=== PATIENT | female | born 1975 | race Caucasian/White ===

== ENCOUNTER 2023-04-18 01:57 | Day surgery (SDC) | payer BC, SELFPAY ==
[2023-04-09 11:03] VITALS: BMI 30.4
--- NOTE | 2023-04-09 11:08 | PC.NURSE ---
Report to the Outpatient Waiting Room, entrance under the green pavilion located off [facility], at time 0930 on date 04/18/23. Planned Procedure Time: 1130. Time changes happen often and if your time is changed the preop area will call you the afternoon before. - You and your visitor will be asked to self-screen and do not enter if you have any COVID symptoms. - A mask is optional within the hospital at this time. Patients may have clear liquids (water, carbonated beverages, clear teas, apple juice) until 3 hours prior to surgery with a maximum of 20 ounces. - No food from midnight until time of surgery Take the following medications with a SIP of water the morning of surgery: SERTRALINE DO NOT STOP ANY OF YOUR OTHER PRESCRIPTION MEDICATIONS PRIOR TO SURGERY ?EXCEPT THE FOLLOWING Medications to discontinue per physician: N/A Date to take last dose: N/A Please no make-up, nail pashto, hairspray, perfume, deodorant, or body powder the day of surgery. No jewelry (including any body piercings) or valuables the day of surgery, leave them at home. Please take a shower or bath the night before, or the morning of, surgery with an antibacterial soap. Wear comfortable, loose fitting clothing. - Jewelry must be removed prior to entering the operating room. Rings and piercings that are not removed may be cut off. - The hospital will not accept responsibility for valuables. - Please leave all valuables, including medications, at home the day of surgery. If you are going home after surgery, a licensed racecar driver must drive you home. - NO public transportation without another adult if you receive anesthesia. - We recommend that an adult stay with you for 24 hours following discharge. - We also recommend that you do not drive, make important decision, drink alcoholic beverages, or take any drugs that were not prescribed by your health care provider for at least 24 hours after your discharge time. Follow any additional instructions given to you from your surgeon. If you or anyone in your household have experienced Covid symptoms in the past week, please notify your surgeon or the nurse liaison at the phone number below for possible testing. Telephone instructions given to PT - HIWOT GARCIA and asked if any additional questions and then verbalized understanding. Patient advised to call surgeon office or pre surgery nurse liaison [phone] if any additional questions.
--- NOTE | ~2023-04-18 | XR_ITS ---
EXAMINATION: XR surgery orthopedic DATE: 04/18/2023 10:23 INDICATION: Orthopedic procedure at the left forefoot TECHNIQUE: Single dorsal plantar fluoroscopic image of the left forefoot was obtained during procedur e performed by Dr. Krueger. Radiologist was not present for the imaging or procedure. The amount of fluoroscopy time used during this procedure was 0.1 minutes. COMPARISON: None. FINDINGS: 2. Shortening osteotomies at the necks of the second and third metatarsals each of which is fixed wit h a pair of screws. Alignment appears near-anatomic aside from mild hallux valgus. Suggestion of tare weigher jaswant osteotomy at the head of the first metatarsal. No fractures identified. 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 IMPRESSION: 1. Expected appearance post likely shortening osteotomies with screw fixation at the necks of the sec ond and third metatarsals. See procedure note for further detail. Reviewed, dictated and finalized at location A. IMPRESSION: 1. Expected appearance post likely shortening osteotomies with screw fixation a t the necks of the second and third metatarsals. See procedure note for further detail.
--- NOTE | 2023-04-18 07:34 | WPDHPUPDATE1 ---
History and Physical Update Update Date/Time: 04/18/23 07:34 History and Physical has been reviewed, including an updated exam of the patient. There are NO changes in the patient's condition. Risks, benefits, and alternatives have been discussed and questions answered. Patient agrees to proceed with procedure.
[2023-04-18] MEDS: LACTATED RINGERS 1,000 ML 30 ML IV CONT (09:00)
--- NOTE | 2023-04-18 09:02 | WPDANESEPPF ---
Anes - Initial Pre Proc Eval Procedure: Operation Date: 04/18/23 09:30 Proposed Procedures p Brooke Shortening Second and Third Metatarsal Osteotomy Left Foot - Sudarshan Krueger JR, MD Date/Time: 04/18/23 09:02 Surgeon: Sudarshan Krueger JR, MD Pre Op Diagnosis: metatarsalgia left foot Patient Data Age: 47 Gender: F Height: 1.73 m Weight: 90.75 kg Allergies Allergy/AdvReac Type Severity Reaction Status Date / Time No Known Allergies Allergy Unverified 04/18/23 08:53 Home Medications Medication Instructions Recorded Confirmed Type sertraline 100 mg tablet 100 mg PO DAILY 04/09/23 04/18/23 History sumatriptan succinate 100 mg tablet 100 mg PO ONCE MIGRAINE 04/09/23 04/09/23 History Patient hx anesthesia problems: none Family hx anesthesia problems: none Results Review: All pre-operative results and documents have been reviewed as part of the pre-operative evaluation. COUNTS INCLUDE 234 BEDS AT THE [facility] Past Medical History Medical History (Updated 04/18/23 @ 09:03 by Jose Luis Pena DO) Anxiety Depression Migraine Psoriasis Family History Family History (Updated 01/19/16 @ 23:21 by DOCTOR UNKNOWN) Mother Family history of obesity Hypertension Family history of eczema Patient's mother is in good health Family history of diabetes mellitus in first degree relative Father Family history of obesity Hypertension Patient's father is in good health Family history of hearing loss Grandparent Family history of obesity Family history of eczema Diabetes mellitus Sibling Patient's brother is in good health Social History Social History Smoking status: Never smoker Alcohol intake: current Drinks per week: 2 Substance use: never Substance use type: does not use Living arrangements: with family Spiritual care concerns: No Anes - Eval Final PreProcedure Day of Procedure 04/18/23 09:02 Patient weight: obese Heart: regular rate and rhythm Lungs: clear to auscultation Airway: Mallampati scale class II Neurological: alert and oriented Last oral intake: >/= 8 hours ASA classification: II Emergent: no Anesthetic plan: proceed Anesthesia type and monitoring: general GIVS and standard monitoring Results Review: All pre-operative results and documents have been reviewed as part of the pre-operative evaluation. Informed Consent: The patient's anesthetic plan and its attendant risks and benefits were discussed with the patient/family/POA. Questions were solicited and answers provided to the satisfaction of the patient/family/POA.
[2023-04-18 09:15] VITALS: BP 127/91; PULSE 86; RESP 20; TEMP 36.3; O2SAT 100
[2023-04-18] MEDS: ceFAZolin 2 GM/D5W 50 ML 2 GM/50 ML BAG IVPB (09:40)
[2023-04-18] MEDS: LIDOCAINE HCL 2% PF INJ 5 ML VIAL 20 ML INFILTRATE (10:08)
[2023-04-18 10:28] VITALS: BP 107/62; PULSE 84; RESP 14; O2SAT 99
[2023-04-18 10:45] VITALS: BP 101/68; PULSE 75; RESP 18; O2SAT 100
--- NOTE | 2023-04-18 10:45 | W.PM.PROC2 ---
Procedure Note - Detailed Date of Procedure 04/18/23 Pre-op Diagnosis Metatarsalgia left foot Post-op Diagnosis Same Procedure Performed Brooke shortening second and third metatarsal osteotomy left foot Surgeon Sudarshan Krueger JR, DPM Anesthesia MAC and Local Indications Painful left forefoot Description of Procedure Under mild sedation, the patient was brought to the operating room, placed on the operating table in the supine position. A pneumatic ankle tourniquet was placed about the patient's left ankle. Following IV sedation, I performed a proximal second and third metatarsal local anesthetic block with 20cc's of 2% Lidocaine plain and 0.5% Marcaine plain, next the foot was then scrubbed, prepped, and draped in the usual aseptic manner. An Esmarch bandage was then used to examine the patient's left foot and pneumatic ankle tourniquet was then inflated. Surgery began in the following manner. Attention was directed to the dorsal aspect of the 2nd metatarsal head of the left foot where a 2 cm incision was made just lateral to the extensor tendon to the left 2nd digit. The incision was continued deep down through the subcutaneous tissues using sharp and blunt dissection. All bleeders were cauterized as necessary. A full-length periosteal incision was made overlying the 2nd inter metatarsal space of the left foot extending to the sulcus of the digits. Next, a sagittal bone saw was used to make an osteotomy starting along the dorsal aspect of the articular surface to the head of the 2nd metatarsal in a parallel fashion to the shaft of the 2nd metatarsal. After this osteotomy was completed, the head of the 2nd metatarsal was noted to float into a more corrected proximal position. Two 2.0 mm Ana partially-threaded cannulated screws were driven from dorsal to plantar across the osteotomy site with excellent compression noted. The wound site was then flushed with copious amounts of sterile saline. Next, the periosteum and capsular structures overlying the 2nd metatarsophalangeal joints were reapproximated with -0 Vicryl. Next, subcutaneous structures were reapproximated and coapted utilizing 4-0 Vicryl. Next, the skin was reapproximated and coapted utilizing 4-0 Monocryl in running subcuticular suture fashion technique. The same procedure was duplicated through the same incision for the third metatarsal. Upon completion of the procedure, the incision was dressed with Steri-Strips, Adaptic, 4 x 4's, Kerlix, and Coban. The pneumatic ankle tourniquet was then deflated and a prompt hyperemic response noted to all digits of the left foot. Posterior splint was then applied. The patient did very well with the procedure and the anesthesia. She was transferred to the recovery room with vital signs stable and vascular status intact to all toes of the left foot. Following a period of postoperative monitoring, the patient will be discharged home on the following written and oral postoperative instructions: 1. Keep the dressing clean, dry, and intact. Use a cast protector bag with showers. 2. The patient to be strictly nonweightbearing with a knee scooter. 3. The patient should ice and elevate the left foot when at rest. 4. The patient to contact Dr. Krueger for all postop care and if any problems arise. 5. Prescriptions were written for Percocet 5/325 dispensed 40 to be taken 1 p.o. q.4 to 6 hours as needed for severe pain. Implants Four Ana 2.0mm Partially threaded Cannulated screws Estimated Blood Loss 1 Drains No Packing No Pathology None sent Complications No immediate complications Condition Stable
[2023-04-18 10:55] VITALS: BP 116/76; PULSE 75; RESP 16; O2SAT 100
[2023-04-18 11:07] VITALS: BP 116/77; PULSE 78; RESP 16; O2SAT 100
== END 2023-04-18 11:19 | disposition home or self-care (01) ==
PROVIDERS: PCP Nurse Practitioner Family; Visit Provider Podiatrist Foot & Ankle Surgery
PROC: (CPT 28750; principal; 2023-04-18 09:30)
DX: M77.42 Metatarsalgia, left foot (principal); F41.9 Anxiety disorder, unspecified; F32.A Depression, unspecified; E66.9 Obesity, unspecified; Z68.31 Body mass index [BMI] 31.0-31.9, adult
CPT/HCPCS: 28308 ×2; 99199; C1713; J0690; J1100; J2250; J2405; J2704; J7120